=== PATIENT | female | born 1990 | race Caucasian/White ===

== ENCOUNTER 2017-11-03 15:53 | Outpatient (CLI) ==
[2013-10-23 17:09] VITALS: BMI 37.4
== END 2017-11-03 15:54 | disposition home or self-care (01) ==
LOC: LAB 15:53
PROVIDERS: ATTEND Emergency Medicine
DX: R42 Dizziness and giddiness (principal); R53.1 Weakness; E66.9 Obesity, unspecified; Z39.1 Encounter for care and examination of lactating mother
CPT/HCPCS: 36415; 80053; 84436; 84443; 84480; 85025

== ENCOUNTER 2017-12-03 11:52 | Outpatient (CLI) ==
[2013-10-23 17:09] VITALS: BMI 37.4
--- NOTE | 2017-12-04 10:40 | MRI ---
EXAM: Brain MRI with and without contrast. HISTORY: Dizziness and giddiness. COMPARISON: None. TECHNIQUE: Multiplanar, multisequence MR images were acquired of the brain before and after administ ration of intravenous contrast. FINDINGS: The midline structures are central and the craniocervical junction is unremarkable. The v entricles and sulci are normal in size and configuration. There are no abnormal extra-axial fluid co llections. The brain parenchyma has no restricted diffusion to suggest acute hypoperfusion or infarction. Artif act is incidentally noted over the left lateral frontal lobe on the DWI sequence. There are no abnorm al T2 or FLAIR hyperintensities and no abnormal foci of dark gradient echo signal. After administrat ion of gadolinium, no enhancing lesions are identified. The corpus callosum is normal in configurati on. The sella is expanded and the pituitary gland is small and partially flattened inferiorly with a concave superior border compatible with a partial empty sella. There are no intraorbital masses. There is mildly increased fluid in the optic nerve sheaths at the optic nerve head insertions. There is no flattening of the posterior sclera. There is undulation of the nasal septum. Paranasal sinuses, middle ears and mastoids are unremarkabl e. There is no abnormal contrast enhancement in the internal auditory canals or labyrinthine structu res. Mild adenoidal hypertrophy is present which is considered normal for the patient's age. Flow voids are present in the major intracranial arteries. The superior sagittal sinus preferentially drains into the left transverse dural sinus, sigmoid sinus and internal jugular vein. There is a ve ry small partially visualized right transverse dural sinus which cannot be followed completely distal ly to the sigmoid sinus which may represent a developmental variant or sinus stenosis. A small dista l right transverse dural sinus is identified at its junction with the sigmoid sinus which is small an d there is a superficial cortical vein that drains into the proximal sigmoid sinus which becomes slig htly larger but remains small to its formation of the partially visualized internal jugular vein. Th mauricio findings raise the possibility of a developmental variant or right transverse dural sinus stenosi s. CT venography or MR venography with a contrast enhanced MPRAGE sequence could better define the a natomy. IMPRESSION: 1. No intracranial mass, hemorrhage or acute cerebral infarct. 2. Unexpected result. Partial empty sella. There is slightly increased fluid in the optic nerve sh eaths at their insertions on the posterior sclera which may represent normal variation. However, thi s finding in conjunction with the small partially visualized right transverse dural sinus raises the possibility of sinus stenosis and idiopathic intracranial hypertension. If significant symptoms persist and there is elevated intracranial pressu re, CT venography or MR venography may be considered. Neurology consultation is advised.
== END 2017-12-03 11:53 | disposition home or self-care (01) ==
LOC: RAD 11:52
PROVIDERS: ATTEND Emergency Medicine
DX: R42 Dizziness and giddiness (principal); R51 Headache